=== PATIENT | male | born 1970 | race Caucasian/White ===

== ENCOUNTER 2023-05-20 01:02 | Day surgery (SDC) | payer OTHER, SELFPAY ==
[2023-05-11 11:11] VITALS: BMI 34.2
--- NOTE | 2023-05-20 09:41 | P.HP_ITS ---
History of Present Illness History of Present Illness Consent: Risks, benefits, and alternatives have been discussed and questions answered. Patient agrees to proceed with procedure. Chief complaint: dysphagia Narrative: Brayden Mccann is a 52 year old male Presents for EGD. Patient reports over the last 15 years sometimes food will pass slow through the chest. Sometimes he feels as though there might be a air bubble in this area. Patient denies any significant heartburn. Occasional indigestion treated with Tums but not on a regular basis. He denies any weight loss or bleeding. Family history noncontributory. Patient referred today for EGD to assess more thoroughly. Review of Systems Review of Systems: Review of systems noncontributory. [facility] Family History Family History (Updated 04/19/23 @ 10:03 by Lori Malhotra MA) Father Diabetes mellitus Family history of hypercholesterolemia Depression Hypertension Grandparent Cerebrovascular accident Mother Depression Disorder of thyroid Grandparent Depression Cerebrovascular accident Other Family history of arthritis Family history of malignant neoplasm Social History Social History (Updated 04/19/23 @ 10:04 by Lori Malhotra MA) Years smoked: 3 Smoking status: Former smoker Tobacco type: cigars Alcohol intake: current Alcohol use details: Socially Substance use: never Substance use type: does not use Lack of Transportation: No Lack of Food: Never True Current Housing: I Have Housing Concerned About Future Housing: No Difficulty Paying Gas/Electric Bills: No Difficulty Paying for Meds: No Currently Unemployed: No Education: Bachelor's Degree Difficulty w/ Childcare or Family Care: No Living arrangements: other Additional living arrangements comments: With SO Occupation/Education: occupation Additional occupation/education comments: [employer] Gender identity (if verbalized by the patient): Male Agree to blood products: Yes Meds Home Medications and Allergies Home Medications Medication Instructions Recorded Confirmed Type Anastrozole See Rx Instructions .Route .COMPLEX 04/19/23 05/11/23 History Testosterone Cynoprate See Rx Instructions .Route .COMPLEX 04/19/23 05/11/23 History Allergies Allergy/AdvReac Type Severity Reaction Status Date / Time Penicillins Allergy Unknown unkown Verified 05/11/23 11:10 season allergies Allergy Unknown unknown Uncoded 05/11/23 11:10 Exam Narrative: Physical exam reveals patient to be alert. Vital signs stable. HEENT exam is unremarkable. Patient is anicteric. Lungs are clear to auscultation and percussion. Heart is without murmur or extra sounds. Abdomen bowel sounds are present soft nontender with no organomegaly. Digital external rectal exam is normal. Assessment and Plan Assessment and plan (1) Dysphagia: Code(s): R13.10 - Dysphagia, unspecified Status: Acute Assessment and Plan: Patient with apparent dysphagia. He states sometimes food will catch the mid substernal portion the chest and passed slowly. Further recommendations will be given after endoscopy which is requested today.
[2023-05-20 09:46] VITALS: BP 139/99; PULSE 65; RESP 20; TEMP 36.6; O2SAT 99
[2023-05-20] MEDS: LACTATED RINGERS 1,000 ML 150 ML IV CONT (09:56)
--- NOTE | 2023-05-20 10:22 | WPDANESEPPF ---
Anes - Initial Pre Proc Eval Procedure: Operation Date: 05/20/23 11:00 Proposed Procedures p Esophagogastroduodenoscopy - Ronald Valverde MD Date/Time: 05/20/23 10:22 Surgeon: Ronald Valverde MD Pre Op Diagnosis: dysphagia Patient Data Age: 52 Gender: M Height: 1.8 m Weight: 110.1 kg Last Vital Signs Temp 36.6 C 05/20/23 09:46 Pulse 65 05/20/23 09:46 Resp 20 05/20/23 09:46 BP 139/99 H 05/20/23 09:46 Pulse Ox 99 05/20/23 09:46 O2 Del Method Room Air 05/20/23 09:46 Allergies Allergy/AdvReac Type Severity Reaction Status Date / Time Penicillins Allergy Unknown unkown Verified 05/20/23 09:45 Home Medications Medication Instructions Recorded Confirmed Type Anastrozole See Rx Instructions .Route .COMPLEX 04/19/23 05/20/23 History Testosterone Cynoprate See Rx Instructions .Route .COMPLEX 04/19/23 05/20/23 History Patient hx anesthesia problems: none Family hx anesthesia problems: none Results Review: All pre-operative results and documents have been reviewed as part of the pre-operative evaluation. [facility] Surgical History Surgical History (Updated 05/20/23 @ 10:22 by Janusz Brice MD) H/O arthroscopic knee surgery Family History Family History Father Diabetes mellitus Family history of hypercholesterolemia Depression Hypertension Grandparent Cerebrovascular accident Mother Depression Disorder of thyroid Grandparent Depression Cerebrovascular accident Other Family history of arthritis Family history of malignant neoplasm Social History Social History Years smoked: 3 Smoking status: Former smoker Tobacco type: cigars Alcohol intake: current Alcohol use details: Socially Substance use: never Substance use type: does not use Lack of Transportation: No Lack of Food: Never True Current Housing: I Have Housing Concerned About Future Housing: No Difficulty Paying Gas/Electric Bills: No Difficulty Paying for Meds: No Currently Unemployed: No Education: Bachelor's Degree Difficulty w/ Childcare or Family Care: No Living arrangements: other Additional living arrangements comments: With SO Occupation/Education: occupation Additional occupation/education comments: [employer] Gender identity (if verbalized by the patient): Male Agree to blood products: Yes Anes - Eval Final PreProcedure Day of Procedure 05/20/23 10:22 Patient weight: overweight Heart: regular rate and rhythm Lungs: clear to auscultation Airway: Mallampati scale class II Neurological: alert and oriented Last oral intake: >/= 8 hours ASA classification: II Emergent: no Anesthetic plan: proceed Anesthesia type and monitoring: general GIVS and standard monitoring Results Review: All pre-operative results and documents have been reviewed as part of the pre-operative evaluation. Informed Consent: The patient's anesthetic plan and its attendant risks and benefits were discussed with the patient/family/POA. Questions were solicited and answers provided to the satisfaction of the patient/family/POA.
[2023-05-20 11:16] VITALS: BP 113/76; PULSE 70; RESP 16; O2SAT 99
[2023-05-20 11:26] VITALS: BP 109/74; PULSE 62; RESP 18; O2SAT 99
[2023-05-20 11:36] VITALS: BP 121/69; PULSE 60; RESP 18; O2SAT 100
== END 2023-05-20 11:46 | disposition home or self-care (01) ==
PROVIDERS: PCP Nurse Practitioner Adult Health; Visit Provider Internal Medicine Gastroenterology
PROC: 0DJ08ZZ Inspection of Upper Intestinal Tract, Via Natural or Artificial Opening Endoscopic (ICD-10-PCS; CPT 43235; principal; 2023-05-20 11:00)
DX: Q39.4 Esophageal web (principal); K22.10 Ulcer of esophagus without bleeding; Z79.811 Long term (current) use of aromatase inhibitors; Z87.891 Personal history of nicotine dependence
CPT/HCPCS: 43450; 43235; J2704; J7120